=== PATIENT | male | born 1960 | race Caucasian/White ===

== ENCOUNTER → 2021-11-20 15:03 | Outpatient (BNVA) | payer OTHER, BC, SELFPAY | PROVIDERS: Family Provider Family Medicine; Visit Provider Orthopaedic Surgery | DX: R29.898 Other symptoms and signs involving the musculoskeletal system (principal); M54.2 Cervicalgia | CPT/HCPCS: 72050; 73030 ==

== ENCOUNTER 2021-12-06 08:02 | Outpatient (CLI) | payer OTHER, BC, MEDICAID, SELFPAY ==
--- NOTE | 2021-12-06 08:00 | MR_ITS ---
WS: [id number] MRI CERVICAL SPINE NONCONTRAST HISTORY: Neck pain down RIGHT arm. COMPARISON: None available. Technique: Multiplanar, multisequence noncontrast imaging of the cervical spine. Very mild straightening of the normal cervical lordosis. Hypertrophic endplate throughout the cervica l spine with disc space narrowing and bulges. Signal within the cervical cord is normal. Visualized posterior fossa is unremarkable. Craniocervical junction, C1 and C2 relationship, odontoid process and soft tissues are normal. C2-C3: Normal. C3-C4: Diffuse disc bulging and osteophytic ridging. Osteophytes encroach upon the ventral thecal sac and foramina. Mild central and bilateral foraminal stenosis. C4-C5: Mild disc bulging and osteophytic ridging. Mild central and mild foraminal narrowing. C5-C6: Diffuse osteophytic ridging and facet joint arthritis. Combination of facet disease and disc a nd osteophyte disease causing moderate central and bilateral foraminal stenosis. Stenosis is predomin antly due to osteophyte disease. C6-C7: Diffuse annular disc bulging and osteophytic ridging. Moderate facet joint arthritis. Small ce ntral disc protrusion contributing to the stenosis. Moderate central stenosis with severe bilateral f oraminal stenosis. C7-T1: Normal. Paraspinal soft tissue are normal. MR/MR cervical spin wo con* [id number] IMPRESSION: 1. Advanced spondylitic changes throughout the cervical spine most significant from C3-4 through C6-7. Multilevel stenoses due to a combination of disc and o steophyte disease. 2. Moderate central stenosis with severe bilateral foraminal stenosis at C6-7. 3. Moderate central and bilateral foraminal stenosis at C5-6. 4. Mild central and bilateral foraminal stenosis at C3-4 and C4-5.
== END 2021-12-06 08:03 | disposition home or self-care (01) ==
PROVIDERS: PCP Family Medicine; Visit Provider Orthopaedic Surgery
DX: M48.02 Spinal stenosis, cervical region (principal)
CPT/HCPCS: 72141

== ENCOUNTER 2021-12-10 12:10 | Outpatient (CLI) | payer OTHER, BC, MEDICAID, SELFPAY | END 2021-12-10 12:11 | disposition home or self-care (01) | LOC: SPT 12:11 | PROVIDERS: PCP Family Medicine; Visit Provider Orthopaedic Surgery | DX: Z46.89 Encounter for fitting and adjustment of other specified devices (principal); M47.22 Other spondylosis with radiculopathy, cervical region | CPT/HCPCS: 97760; L0174 ==

== ENCOUNTER 2021-12-18 05:59 | Day surgery (SDC) | payer OTHER, BC, MEDICAID, SELFPAY ==
[2021-12-13 08:31] VITALS: BMI 41.1
--- NOTE | 2021-12-13 09:03 | ANES.PREANE2 ---
Pre-Anesthetic Assessment Height/Weight: Height 1.78 m Weight 130.181 kg Preop Diagnosis: Cervical spondylosis Operation Date: 12/18/21 12:15 Proposed Procedures p ACDF C4/5 C5/6 C6/7C [id number](Not Applicable) - Mu Mcghee, DO Familial anesthetic complications: Does not tolerate Demerol well Was Beta Gabino taken within 24 hours: N/A Was Clonidine taken within 24 hours: N/A Social No alcohol and No tobacco Exam alert, oriented x 3, clear to auscultation bilaterally and regular rate & rhythm Airway Submandibular: within normal limits Cervical ROM: within normal limits (Some pain with ROM otherwise normal ) Mallampati: Class III Comments: Comments: Missing multiple teeth Pulmonary None reported CV/HEM Hypertension METS = 4 due to pain Denies hx of afib, aflutter, [place], CAD None reported Hepatic None reported GI Gastroesophageal Reflux Disease (Well controlled ) Metabolic Morbid Obesity Hx of high A1c, denies DM dx [facility] [place] Lower Back Pain and Osteoarthritis/DJD Weakness in right arm Neuropsych None reported Anesthetic Plan ASA status: 3 Anesthesia: Anesthesia Evaluation and General Other: We discussed risk and benefits of general anesthesia including PONV, sore throat (sometimes severe), corneal abrasion, positioning and peripheral nerve injuries, life threatening allergic reaction, post operative ICU admission requiring prolonged intubation, aspiration, stroke, heart attack, , and rare incidences of recall. Patient consents to proceed with general anesthesia. Patient will hold diclofenac starting today as well as home PRN ibuprofen and will continue acetaminophen. CBC did not result today. Labs ordered for DOS (BMP, CBC). Plan general, 2 PIV. Risk of > 500 ml blood loss (7ml/kg in children): No Medications/Allergies Home Medications Medication Instructions Recorded Confirmed Last Taken Type aspirin 81 mg tablet,delayed 81 mg PO DAILY 09/13/19 12/13/21 Unknown History release cetirizine 10 mg capsule (Zyrtec) 10 mg PO DAILY 09/13/19 12/13/21 Unknown History Cervical Collar #1 ea 12/10/21 12/10/21 Unknown Rx diclofenac sodium 75 mg 75 mg PO BID 12/10/21 12/13/21 Unknown History tablet,delayed release lisinopril 20 mg tablet 20 mg PO DAILY 12/10/21 12/13/21 Unknown History Allergies Allergy/AdvReac Type Severity Reaction Status Date / Time meperidine [From Demerol] Allergy ADR-Confusi Verified 12/13/21 09:03 on [facility] Anesthesia Medical History Degenerative joint disease Hypertension Primary osteoarthritis of knees, bilateral Social History Smoking and tobacco status: never smoked Alcohol intake: unknown Data Anesthesia : 12/13/21 08:50 Cardiac Studies: No Data to Display
[2021-12-13 09:22] LABS: Blood Urea Nitrogen 16 mg/dL (8-23); Calcium 9.4 mg/dL (8.5-10.5); Carbon Dioxide 23 mmol/L (22-29); Chloride 103 mmol/L (98-107); Glomerular Filtration Rate 75.5 mL/min (90-130); Glucose 220 mg/dL (65-115); Osmolality Calculated 296 mOsm/kg (285-295); Sodium 139 mmol/L (136-145)
[2021-12-18] VITALS (18 sets, daily range): BP systolic 131–197; BP diastolic 68–97; PULSE 72–92; RESP 16–20; TEMP 36.4–36.9; O2SAT 93–98
--- NOTE | 2021-12-18 | SCC_ITS ---
Procedure done: 1. Anterior diskectomy C4/5 2. Anterior diskectomy C5/6 3. Anterior discectomy C6/7 4. Insertion of cage C4/5 5. Insertion of cage C5/6 6. Insertion of Cage C6/7 7. Instrumentation with anterior plate from C4-C7 8. Use of allograft 6.6 seconds of fluoroscopic guidance, for a cumulative dose of 2.3 mGy, was provided to Dr. Mcghee by the radiology department. C-arm images of the cervical spine were saved for the patient's permanent record. WAYNE
--- NOTE | 2021-12-18 | XR_ITS ---
WS: [id number] INTRAOPERATIVE TECHNIQUE: 4 Spot fluoroscopic images for intraoperative purposes. FLUOROSCOPY TIME: 6.6 seconds CLINICAL INFORMATION: C4-C7 ACDF COMPARISON: None. FINDINGS: Intraoperative changes ACDF C4-C7. Endotracheal tube. XR/XR cervical spine 3V* [id number] IMPRESSION: Images obtained for intraoperative purposes.
--- NOTE | 2021-12-18 06:37 | P.ANESUD_ITS ---
Pre-Anesthetic Update Pre-Anesthetic Assessment: Date of Surgery/Procedure: 12/18/21 Preop Susie gnosis: Cervical spondylosis with radiculopathy Proposed Procedure: Operation Date: 12/18/21 07:00 Proposed Procedures p ACDF C4/5 C5/6 C6/7C [id number]/M47.22(Not Applicable) - Mu Mcghee, DO Any changes to Pre-Anesthetic Assessment?: No Last Intake: Intake Last Liquid Date 12/17/21 Last Liquid Time 22:30 Last Solid Date 12/17/21 Last Solid Time 20:00 Vitals: Temperature 97.6 F 12/18/21 06:15 Temperature Source Temporal Artery S can 12/18/21 06:15 Pulse Rate 92 12/18/21 06:15 Respiratory Rate 17 12/18/21 06:15 Blood Pressure 148/97 12/18/21 06:15 Blood Pressure Keira n 114 12/18/21 06:15 Pulse Oximetry 96 12/18/21 06:15 Oxygen Delivery Me thod 12/18/21 06:21 Exam: Pre-Anes Outpt Exam: alert, oriented x 3, clear to auscultation bilaterally and regular rate & rhythm Cardiac Studies: No Data to Display
--- NOTE | 2021-12-18 06:43 | W.PM.OPSUD ---
Surgery/Procedure H&P Update DATE OF PROCEDURE: December 18, 2021 DATE H&P PERFORMED: 12/10/21 H&P UPDATE INFORMATION: I have reviewed H&P completed within last 30 days, I have examined patient prior to procedure and No changes to prior documentation PREOP DIAGNOSIS: Cervical spondylosis with radiculopathy PLANNED PROCEDURE: Operation Date: 12/18/21 07:00 Proposed Procedures p ACDF C4/5 C5/6 C6/7C [id number]/M47.22(Not Applicable) - Mu Mcghee DO
[2021-12-18] MEDS: sodium chloride 0.9% 1,000 ML 30 ML IV (07:01)
[2021-12-18] MEDS: ceFAZolin 2,000 MG in sodium chloride 0.9% (plus) 50 ML 100 MG IV (07:04)
[2021-12-18 07:34] LABS: Basophils # 0.1 10^3/uL (0.0-0.1); Basophils % 0.8 %; Eosinophils # 0.2 10^3/uL (0.0-0.8); Eosinophils % 2.4 %; Hematocrit 43.3 % (42.0-52.0); Hemoglobin 15.4 g/dL (11.7-16.6); Lymphocytes # 2.1 10^3/uL (0.8-4.8); Lymphocytes % 32.6 %; Mean Corpuscular HGB Conc 35.6 g/dL (30.0-36.0); Mean Corpuscular Hemoglobin 32.1 pg (28.0-34.0); Mean Corpuscular Volume 90.2 fl (80-94); Mean Platelet Volume 12.4 fL (7.4-10.4); Monocytes # 0.7 10^3/uL (0.2-0.9); Monocytes % 10.7 %; Neutrophils % 53.3 %; Nucleated Red Blood Cells % 0 %; Platelet Count 219 10^3/cmm (130-400); Red Cell Distribution Width 13.1 % (12.1-15.1); White Blood Count 6.6 10^3/uL (4.0-10.0)
--- NOTE | 2021-12-18 07:49 | SUR.OPER ---
family updated of surgical status
[2021-12-18 07:53] LABS: Blood Urea Nitrogen 14 mg/dL (8-23); Calcium 9.6 mg/dL (8.5-10.5); Carbon Dioxide 22 mmol/L (22-29); Chloride 104 mmol/L (98-107); Glomerular Filtration Rate 97.6 mL/min (90-130); Glucose 156 mg/dL (65-115); Osmolality Calculated 296 mOsm/kg (285-295); Sodium 141 mmol/L (136-145)
--- NOTE | 2021-12-18 09:15 | SUR.OPER ---
family updated of surgical status
[2021-12-18] MEDS: fentaNYL 50 mcg/mL INJ 2mL 100 MCG ×2 (10:05→10:15)
--- NOTE | 2021-12-18 10:07 | PM.OP ---
Operative Report Date of procedure: December 18, 2021 Pre-op diagnosis: Preop Diagnosis Cervical spondylosis with radiculopathy Post-op diagnosis: same Procedure done: 1. Anterior diskectomy C4/5 2. Anterior diskectomy C5/6 3. Anterior discectomy C6/7 4. Insertion of cage C4/5 5. Insertion of cage C5/6 6. Insertion of Cage C6/7 7. Instrumentation with anterior plate from C4-C7 8. Use of allograft Surgeon: Mu Mcghee Hotel Supplies Salesperson: Shantanu De La Torre Hotel Supplies Salesperson: The surgical technology instructor, Shantanu De La Torre, PAC was needed for his expertise under the microscope. He was important and necessary throughout the procedure to complete in a safe and timely manner. He assisted with patient positioning prepping and draping tissue retraction suctioning of the operative field protection of the dural sac and tissue closure Estimated blood loss (mL): 10 Procedure: 1. Anterior diskectomy C4/5 2. Anterior diskectomy C5/6 3. Anterior discectomy C6/7 4. Insertion of cage C4/5 5. Insertion of cage C5/6 6. Insertion of Cage C6/7 7. Instrumentation with anterior plate from C4-C7 8. Use of allograft The patient was taken to the operating room, where he underwent general endotracheal anesthesia without complications. He was then positioned supine on the operating table, and all areas of impingement were well padded. The arms were carefully padded and tucked at his sides. A roll was placed between the shoulder blades.. An x-ray was done to determine the appropriate level for the skin incision. The entire neck was then sterilely prepped and draped in the usual fashion. Neuromonitoring was attached prior to prepping. A transverse skin incision was made and carried down to the platysma muscle. This was then split in line with its fibers. Blunt dissection was carried down medial to the carotid sheath and lateral to the trachea and esophagus until the anterior cervical spine was visualized. A needle was placed into a disc and an x-ray was done to determine its location. The longus colli muscles were then elevated bilaterally with the electrocautery unit. Self-retaining retractors were placed deep to the longus colli muscle. Attention was brought to the C6/7 level that was confirmed on x-ray. A caspar pin was placed into the C6 vertebrae and the C7 vertebrae. The disk space was then distracted. The microscope was then brought in. A radical anterior discectomies were performed at C6/7. This included complete removal of the anterior annulus, nucleus, and posterior annulus. The posterior longitudinal ligament was removed as were the posterior osteophytes. Foraminotomies were then accomplished bilaterally. This was done using a high speed stephany, kerrison rongeurs and curretes Once all of this was accomplished, the curved currette was used to check for any residual compression. The central canal was wide open as were the foramen. A high-speed bur was used to remove the cartilaginous endplates above and below the interspace. Bleeding cancellous bone was exposed. The disc space were measured and appropriate size cage were placed sterilely onto the field. Allograft graft was packed into the cages. The cage was then placed and there was good juxtaposition against the bleeding decorticated surfaces and good distraction of each interspace. Attention was brought to the next interspace. The [place] pins were removed. Bone wax was used to prevent any bleeding from occurring at the pin sites. Attention was brought to the C5/6 level that was confirmed on x-ray. A caspar pin was placed into the C5 vertebrae and the C6 vertebrae. The disk space was then distracted. The microscope was then brought in. A radical anterior discectomies were performed at C5/6. This included complete removal of the anterior annulus, nucleus, and posterior annulus. The posterior longitudinal ligament was removed as were the posterior osteophytes. Foraminotomies were then accomplished bilaterally. This was done using a high speed stephany, kerrison rongeurs and curretes Once all of this was accomplished, the curved currette was used to check for any residual compression. The central canal was wide open as were the foramen. A high-speed bur was used to remove the cartilaginous endplates above and below the interspace. Bleeding cancellous bone was exposed. The disc space were measured and appropriate size cage were placed sterilely onto the field. Allograft graft was packed into the cages. The cage was then placed and there was good juxtaposition against the bleeding decorticated surfaces and good distraction of each interspace. Attention was brought to the next interspace. The [place] pins were removed. Bone wax was used to prevent any bleeding from occurring at the pin sites. Attention was brought to the C4/5 level that was confirmed on x-ray. A caspar pin was placed into the C4 vertebrae and the C5 vertebrae. The disk space was then distracted. The microscope was then brought in. A radical anterior discectomies were performed at C4/5. This included complete removal of the anterior annulus, nucleus, and posterior annulus. The posterior longitudinal ligament was removed as were the posterior osteophytes. Foraminotomies were then accomplished bilaterally. This was done using a high speed stephany, kerrison rongeurs and curretes Once all of this was accomplished, the curved currette was used to check for any residual compression. The central canal was wide open as were the foramen. A high-speed bur was used to remove the cartilaginous endplates above and below the interspace. Bleeding cancellous bone was exposed. The disc space were measured and appropriate size cage were placed sterilely onto the field. Allograft graft was packed into the cages. The cage was then placed and there was good juxtaposition against the bleeding decorticated surfaces and good distraction of each interspace. Attention was brought to the next interspace. The [place] pins were removed. Bone wax was used to prevent any bleeding from occurring at the pin sites. The appropriate size anterior cervical locking plate was chosen and bent into gentle lordosis. Two screws were then placed into each of the vertebral bodies at C4,C5,C6 and C7. There was excellent purchase. A final x-ray was done confirming good position of the hardware and Cages. The locking screws were then applied, also with excellent purchase. Following a final copious irrigation, there was good hemostasis and no dural leaks. The carotid pulse was strong. The wounds were then closed in layers using 2-0 Vicryl suture for the platysma muscle, 2-0 Vicryl suture for the subcutaneous tissue, and 4-0 monocryl suture in a subcuticular skin closure. Glue was placed followed by application of a sterile dressing. The drain was hooked to bulb suction. A soft collar was applied. The patient was then carefully returned to the supine position on his hospital bed where he was reversed and extubated and taken to the recovery room having tolerated the procedure well.
[2021-12-18] MEDS: HYDROmorphone 1 mg/mL INJ 1 mL 0.5 MG IVP (10:21)
[2021-12-18] MEDS: HYDROcodone-acetaminophen 5-325 mg Tablet 2 TAB PO (11:51)
--- NOTE | 2021-12-18 13:48 | ANE.PACU2 ---
Inpatient post-anesthesia follow up: Airway intact: Yes Vital signs: Temperature 98.1 F Pulse Rate 87 Respiratory Rate 18 Blood Pressure 150/77 Pulse Oximetry 95 Oxygen Delivery Me thod Room Air Oxygen Flow Rate 1 Fraction of Inspir ed Oxygen Hydration adequate: Yes Nausea and vomiting: No Pain level: 1 Mental status: Baseline
== END 2021-12-18 12:03 | disposition home or self-care (01) ==
PROVIDERS: Anesthesiology; PCP Family Medicine; Visit Provider Orthopaedic Surgery
PROC: 0RB30ZZ Excision of Cervical Vertebral Disc, Open Approach (ICD-10-PCS; CPT 22551; principal; 2021-12-18 07:00)
DX: M47.22 Other spondylosis with radiculopathy, cervical region (principal); I10 Essential (primary) hypertension; K21.9 Gastro-esophageal reflux disease without esophagitis; E66.01 Morbid (severe) obesity due to excess calories; Z68.41 Body mass index [BMI] 40.0-44.9, adult; Z79.82 Long term (current) use of aspirin
CPT/HCPCS: 20930; 22551; 22552 ×2; 22845; 22853 ×3; 36415; 51702; 72040; 76000; 80048; 85025; C1713; C9359; J0330; J1100; J1170; J2250; J2370; J2405; J2704; J2710; J3010; J3490; J7030

== ENCOUNTER → 2022-01-28 10:54 | Outpatient (BNVA) | payer OTHER, BC, MEDICAID, SELFPAY | PROVIDERS: PCP Family Medicine; Visit Provider Orthopaedic Surgery | DX: Z47.89 Encounter for other orthopedic aftercare (principal) | CPT/HCPCS: 72040 ==

== ENCOUNTER → 2022-03-11 10:05 | Outpatient (BNVA) | payer OTHER, BC, MEDICAID, SELFPAY | PROVIDERS: PCP Family Medicine; Visit Provider Orthopaedic Surgery | DX: Z47.89 Encounter for other orthopedic aftercare (principal); Z98.1 Arthrodesis status | CPT/HCPCS: 72040 ==

== ENCOUNTER → 2022-04-29 08:45 | Outpatient (BNVA) | payer OTHER, BC, MEDICAID, SELFPAY | PROVIDERS: PCP Family Medicine; Visit Provider Orthopaedic Surgery | DX: Z48.89 Encounter for other specified surgical aftercare (principal); Z98.1 Arthrodesis status | CPT/HCPCS: 72040 ==

== ENCOUNTER → 2022-07-10 14:21 | Outpatient (BNVA) | payer OTHER, BC, MEDICAID, SELFPAY | PROVIDERS: PCP Family Medicine; Visit Provider Physician Assistant | DX: Z98.1 Arthrodesis status (principal) | CPT/HCPCS: 72040 ==

== ENCOUNTER → 2023-04-21 10:32 | Outpatient (BNVA) | payer OTHER, MEDICAID, SELFPAY | PROVIDERS: PCP Family Medicine; Visit Provider Orthopaedic Surgery | DX: Z98.1 Arthrodesis status (principal); M25.569 Pain in unspecified knee | CPT/HCPCS: 72040; 99213 ==

== ENCOUNTER → 2023-05-22 10:11 | Outpatient (BNVA) | payer OTHER, MEDICAID, SELFPAY | PROVIDERS: PCP Family Medicine; Referring Provider Orthopaedic Surgery; Visit Provider Nurse Practitioner | DX: M17.0 Bilateral primary osteoarthritis of knee | CPT/HCPCS: 73560; 73565; 99214 ==

== ENCOUNTER → 2023-07-03 10:55 | Outpatient (BNVA) | payer OTHER, MEDICAID, SELFPAY | PROVIDERS: PCP Family Medicine; Visit Provider Specialist | DX: M17.0 Bilateral primary osteoarthritis of knee (principal) | CPT/HCPCS: 20610; J1100; J2795; J3301 ==

== ENCOUNTER → 2023-10-07 11:31 | Outpatient (BNVA) | payer OTHER, MEDICAID, SELFPAY | PROVIDERS: PCP Family Medicine; Visit Provider Nurse Practitioner | DX: M17.0 Bilateral primary osteoarthritis of knee (principal); M25.561 Pain in right knee; M25.562 Pain in left knee | CPT/HCPCS: 73560; 73565; 99213 ==

== ENCOUNTER → 2023-10-20 14:53 | Outpatient (BNVA) | payer OTHER, SELFPAY | PROVIDERS: PCP Family Medicine; Visit Provider Orthopaedic Surgery | DX: M48.062 Spinal stenosis, lumbar region with neurogenic claudication (principal) | CPT/HCPCS: 72110; 99214 ==

== ENCOUNTER 2023-12-04 12:59 | Outpatient (CLI) | payer OTHER, SELFPAY ==
--- NOTE | 2023-12-04 13:00 | MR_ITS ---
WS: [id number] MRI LUMBAR SPINE NONCONTRAST HISTORY: low back pain COMPARISON: None available. TECHNIQUE: Sagittal and axial multisequence imaging is submitted. Prior cervical fusion. Advanced degenerative disc disease in the cervical and thoracic spines. Increase in the lumbar lordosis and LEFT curvature lumbar spine. Mild retrolisthesis of L1, L2 and L3. Disc spaces are narrowed in the lumbar spine. Conus terminates normally at L1-2 disc level. L1-L2: Large central disc protrusion contacts and displaces the thecal sac and the nerve roots. There is significant encroachment into the subarticular recesses greater on the LEFT. Disc protrusion exte nds slightly above and below the disc level. Significant central, bilateral subarticular recess pasquale inal stenosis. L2-L3: Diffuse annular disc bulging with facet and ligamentum flavum hypertrophy. Severe central, linda ateral subarticular recess and foraminal stenosis. L3-L4: Marked annular disc bulging with ligamentum flavum and facet arthritis. Central disc protrusio n. Severe central with bilateral subarticular recess and foraminal stenosis. L4-L5: Severe annular disc bulging with ligamentum flavum and facet arthritis. Severe central, bilate ral subarticular recess and foraminal stenosis. L5-S1: Marked annular disc bulging encroaching upon the thecal sac and subarticular recesses. Severe central, bilateral subarticular recess and foraminal stenosis. Paravertebral soft tissues are normal. MR/MR lumbar spine wo con* [id number] IMPRESSION: 1. Advanced degenerative spondylosis with increasing curvature of the lumbar s pine. 2. Severe multilevel central, bilateral subarticular recess and foraminal sten osis due to combination of disc disease with protrusions, osteophytes, ligament um flavum and facet arthritis. 3. Severe central, bilateral subarticular recess and foraminal stenosis from L 1-2 through L5-S1 with contact on the exiting and traversing nerve roots at eac h level.
== END 2023-12-04 13:00 | disposition home or self-care (01) ==
LOC: RAD 13:00
PROVIDERS: PCP Family Medicine; Visit Provider Orthopaedic Surgery
DX: M51.34 Other intervertebral disc degeneration, thoracic region (principal); M50.30 Other cervical disc degeneration, unspecified cervical region; M40.56 Lordosis, unspecified, lumbar region; M51.26 Other intervertebral disc displacement, lumbar region; M47.896 Other spondylosis, lumbar region; M99.63 Osseous and subluxation stenosis of intervertebral foramina of lumbar region; M99.64 Osseous and subluxation stenosis of intervertebral foramina of sacral region; M43.22 Fusion of spine, cervical region
CPT/HCPCS: 72148

== ENCOUNTER → 2023-12-10 15:30 | Outpatient (BNVA) | payer OTHER, SELFPAY | PROVIDERS: PCP Family Medicine; Visit Provider Orthopaedic Surgery | DX: Z09 Encounter for follow-up examination after completed treatment for conditions other than malignant neoplasm | CPT/HCPCS: 99214 ==

== ENCOUNTER → 2024-02-09 10:47 | Outpatient (BNVA) | payer OTHER, SELFPAY | PROVIDERS: PCP Family Medicine; Visit Provider Orthopaedic Surgery | DX: M48.062 Spinal stenosis, lumbar region with neurogenic claudication (principal) | CPT/HCPCS: 99213 ==